=== PATIENT | female | born 1935 | race Two or more races ===

== ENCOUNTER 2023-03-22 07:30 | Emergency (ER) | payer OTHER ==
[~2023-03-22] VITALS: Ht 167.6 cm; Wt 68.0 kg
[2023-03-22] MEDS ORDERED: GLUMETZA500 MG PO (07:42)
[2023-03-22] MEDS ORDERED: LASIX20 MG PO (07:42)
[2023-03-22] MEDS ORDERED: OMEPRAZOLE40 MG PO (07:56)
[2023-03-22] MEDS ORDERED: GABAPENTIN100 M2 PO (07:56)
[2023-03-22] MEDS ORDERED: CARBIDOPA-LEVO1 EA10 PO (07:57)
[2023-03-22] MEDS ORDERED: ENALAPRIL MALE2.5 MG (07:57)
[2023-03-22] MEDS ORDERED: SERTRALINE HCL50 MG PO (07:57)
[2023-03-22 09:08] LABS: HEMATOCRIT 30.8 % (36.0-45.00); HEMOGLOBIN 10.2 g/dL (12.0-15.00); MEAN CELL VOLUME 94.9 fL (80.00-100.00); MEAN CORPUSCULAR HEMOGLOBIN 31.5 pg (27.00-32.0); MEAN CORPUSCULAR HGB CONC 33.2 g/dl (32.0-36.0); PLATELET COUNT 238 K/uL (150-450); RED BLOOD COUNT 3.25 M/uL (4.00-6.00); RED CELL DISTRIBUTION WIDTH 14.5 % (11.5-14.5)
[2023-03-22 09:34] LABS: ABG PH 7.449 (7.35-7.45); ABG PO2 65.1 mmHg (80-100); BICARBONATE 27.1 mmol/l (23-25); SaO2 93.6 %; Tco2 28.3 mmol/l
[2023-03-22 09:35] LABS: allen test SATISFACTORY; o2 21 %; puncture site RADIAL RIGHT
[2023-03-22 09:56] LABS: INR 1.04; PROTHROMBIN TIME 10.9 SECONDS (9.0-11.5)
[2023-03-22 10:00] LABS: ALBUMIN 2.8 gm/dL (3.4-5.0); ALKALINE PHOSPHATASE 103 U/L (50-136); ANION GAP 9 (10.0-20.0); AST/SGOT 26 U/L (15-37); BILIRUBIN TOTAL 0.76 mg/dL (0.3-1.2); BLOOD UREA NITROGEN 17 mg/dL (7-18); BUN CREA RATIO 17 (7.0-25.0); CALCIUM 9.1 mg/dL (8.5-10.1); CARBON DIOXIDE 28 mEq/L (21-32); CHLORIDE 105 mmol/L (98-107); GFR 52.45; GLOBULINA 4.4 G/DL (2.4-3.5); GLUCOSE FASTING 146 mg/dL (65-100); OSMOLALITY SERUM 280 MOSM/KG (275-295); POTASSIUM 4.04 mEq/L (3.5-5.1); SODIUM 138 mmol/L (136-145); TOTAL PROTEIN 7.2 gm/dL (6.4-8.2)
[2023-03-22 10:06] LABS: ALT/SGPT < 6 U/L (12-78)
[2023-03-22 13:47] LABS: URINE APPEARANCE Clear; URINE BILIRRUBIN Negative (NEGATIVE); URINE BLOOD Negative; URINE COLOR Yellow; URINE GLUCOSE Negative (NEGATIVE); URINE LEUKOCYTE Negative; URINE NITRATE Negative; URINE PROTEIN 30 (NEGATIVE)
[2023-03-22 13:51] LABS: URINE BACTERIA 25.1 uL (0.0-1933); URINE EPITHELIAL CELLS 2.9 uL (0.0-38.8); URINE RBC 17.6 uL (0.0-20.8); URINE WBC 3.8 uL (0.0-23.2)
== END 2023-03-22 21:38 | disposition home or self-care (01) ==
LOC: ER 07:30
PROVIDERS: General Practice
DX: R05.8 Other specified cough (principal); R50.9 Fever, unspecified; E11.9 Type 2 diabetes mellitus without complications; Z79.84 Long term (current) use of oral hypoglycemic drugs; Z20.822 Contact with and (suspected) exposure to COVID-19